=== PATIENT | male | born 1985 | race Caucasian/White ===

== ENCOUNTER 2021-02-01 21:32 | Emergency (ER) | payer OTHER, SELFPAY ==
[2021-02-01 21:58] VITALS: BP 121/85; PULSE 73; RESP 16; TEMP 36.9; O2SAT 98
--- NOTE | 2021-02-01 21:58 | ED.WOUNDLAC ---
HPI - Wound/Laceration General Chief Complaint: Wound/Laceration Stated Complaint: laceration of hand Time Seen by Provider: 02/01/21 21:38 Source: patient Mode of arrival: ambulatory Limitations: no limitations History of Present Illness HPI narrative: Patient is a 35-year-old male complaining of a cut on his right hand after accidentally slicing it with a drill bit, he denies the drill going thru his hand, just grazed it . Patient denies any other pain or injury. Related Data Allergies Allergy/AdvReac Type Severity Reaction Status Date / Time avocado Allergy Unknown Unverified 01/31/15 18:57 banana Allergy Unknown Verified 01/31/15 18:57 Penicillins Allergy Unknown MOM TOLD Unverified 01/31/15 18:57 HIM A CHILD Review of Systems Review of Systems: All systems reviewed & are unremarkable except as noted in HPI and below Constitutional: Constitutional: Reports as per HPI PMFSH Comments Past medical history: None Family history: None Social history: Non-smoker no EtOH or drug use Exam Const: General: no acute distress and alert Orientation/consciousness: patient oriented x3 HENMT: Head: normal to inspection Eyes: Conjunctivae: conjunctivae normal Neck: Neck: normal visual inspection Resp: Effort & Inspection: normal respiratory effort Extrem: Other: superficial laceration right hand, dorsal aspect, measuring approx 3 cm Procedures Laceration Laceration 1: Date: 02/01/21 Time: 22:02 Site: hand Side (If applicable): right Size (cm): 3 Description: stellate Depth: simple, single layer Pre-repair: wound explored ====== Skin Level ====== Skin layer closed with: dermabond ====== Subcutaneous Layer ====== ====== Muscle Layer ====== ====== Tendon Layer ====== Discharge Plan Discharge Clinical Impression: Laceration of hand Patient Disposition: Home, Self-Care Condition: Improved Instructions: Skin Adhesive Care (ED) Follow-up/Referrals: PHYSICIAN,HAZMAT CDL DRIVER [Primary Care Provider] - Time of Disposition: 22:03
== END 2021-02-01 22:53 | disposition home or self-care (01) ==
LOC: ANHED 22:04
PROVIDERS: Emergency Provider Emergency Medicine
DX: S61.411A Laceration without foreign body of right hand, initial encounter (principal); W29.8XXA Contact with other powered hand tools and household machinery, initial encounter
CPT/HCPCS: 12002; 99282